=== PATIENT | male | born 1945 | race Caucasian/White ===

== ENCOUNTER 2024-08-21 09:39 | Day surgery (SDC) | payer MEDICARE, SELFPAY ==
[2024-08-17 08:46] VITALS: BMI 23.8
--- NOTE | 2024-08-17 13:38 | P.CONAN_ITS ---
Documented by User: Yuli Weiner NP 08/17/24 13:38 HPI - Anesthesia Eval Consult details Narrative: 79yo M for Left Cataract Extraction IOL Insertion No previous cataract on record [facility] Past Medical History Medical History Pulmonary nodules Pre-diabetes Emphysema lung Elevated cholesterol HTN (hypertension) Chronic renal insufficiency Surgical History Surgical History Hx of vasectomy History of lung biopsy H/O colonoscopy Social History Social History Patient Tobacco Use Status: Former Tobacco user Tobacco use type: Cigarette Use of substances other than those prescribed or required for medical reasons: No Christian Healthcare Practices: [employer] Advance Directives Information Provided: Yes (as above noted) Advance Directives on File: No Meds Allergies Allergy/AdvReac Type Severity Reaction Status Date / Time No Known Allergies Allergy Verified 08/21/24 11:21 Home Medications ?Medication ?Instructions ?Recorded ?Confirmed ?Last Taken ?Type amlodipine 10 mg tablet 10 mg PO DAILY 08/17/24 08/17/24 08/21/24 History lisinopril 5 mg tablet 5 mg PO DAILY 08/17/24 08/17/24 08/21/24 History pravastatin 20 mg tablet 20 mg PO DAILY 08/17/24 08/17/24 Unknown History Exam Height,Weight and Vital Signs: Height 5 ft 8.27 in Weight 71.6 kg Assessment and Plan Assessment Anesthesia Assessment: Chart Reviewed Documented by User: Yolanda Duran MD 08/21/24 12:33 [facility] Past Medical History Medical History Pulmonary nodules Pre-diabetes Emphysema lung Elevated cholesterol HTN (hypertension) Chronic renal insufficiency Family History Family history of problems with anesthesia: No Surgical History Surgical History Hx of vasectomy History of lung biopsy H/O colonoscopy History of Problems with Anesthesia: No Social History Social History Patient Tobacco Use Status: Former Tobacco user Tobacco use type: Cigarette Use of substances other than those prescribed or required for medical reasons: No Christian Healthcare Practices: [employer]ism Advance Directives Information Provided: Yes (as above noted) Advance Directives on File: No Meds Allergies Allergy/AdvReac Type Severity Reaction Status Date / Time No Known Allergies Allergy Verified 08/21/24 11:21 Home Medications ?Medication ?Instructions ?Recorded ?Confirmed ?Last Taken ?Type amlodipine 10 mg tablet 10 mg PO DAILY 08/17/24 08/17/24 08/21/24 History lisinopril 5 mg tablet 5 mg PO DAILY 08/17/24 08/17/24 08/21/24 History pravastatin 20 mg tablet 20 mg PO DAILY 08/17/24 08/17/24 Unknown History Exam Airway Mallampati Class: II TM Dist: >3cm Neck ROM: Full Heart: rrr Lungs: cta Assessment and Plan Assessment Anesthesia Assessment: Anesthesia Plan Discussed Final Anesthetic Review Family History of Problems with Anesthesia: No History of Problems with Anesthesia: No NPO: Yes ASA Class: III Final Preanesthetic Review: No Changes in Pt Med Stat, Meds/Allgs Chart Reviewed, Consent Obtained/Reviewed and Anes Risks/Benef Reviewed Patient Risk: Intermediate Procedure Risk: Low Anesthetic Plan Anesthetic Plan: MAC: Disposition: Standard PACU
[2024-08-21] MEDS: Tetracaine HCl/PF 0.5% Oph Sol 4 ML DROPS 1 DROP EYE-LEFT (11:00)
[2024-08-21] MEDS: Lactated Ringers 500 ML 50 ML IV (11:00)
[2024-08-21] MEDS: Cyclopentolate 1 % Ophth Sol 2 ML DRPBTL 1 DROP EYE-LEFT ×3 (11:00→11:08)
[2024-08-21] MEDS: Phenylephrine HCL 2.5% Oph SoL 2 ML BOTTLE 1 DROP EYE-LEFT ×3 (11:00→11:08)
[2024-08-21] MEDS: Tropicamide 1 % Ophth Sol 3 ML BTL 1 DROP EYE-LEFT ×3 (11:01→11:08)
[2024-08-21] MEDS: Ketorolac Tromethamine 0.5% Op 10 ML DROPS 1 DROP EYE-LEFT ×3 (11:01→11:08)
[2024-08-21 11:19] VITALS: BP 121/74; PULSE 77; RESP 18; TEMP 36.8; O2SAT 97
--- NOTE | 2024-08-21 11:53 | MHC.SHP ---
Pre-Procedural Eval Section A - 24 Hr Update-Section A only Date of Service: 08/21/24 The patient is an INPATIENT: No Changes since office visit: No Cold of Flu in the past 2 weeks, No New Medical Problems, No Changes in Medication and No Patient answered all questions The patient has been examined within 24 hours of the surgical procedure. The History & Physical has been completed within 30 days and I have reviewed it.: Yes Section B - Complete if H&P > 30 days Chief Complaint: Age-related nuclear cataract, left eye Allergies: Allergies Allergy/AdvReac Type Severity Reaction Status Date / Time No Known Allergies Allergy Verified 08/21/24 11:21 Plan Diagnosis/Plan: Unchanged I have reviewed the history and physical and performed a pertinent physical examination on my patient. No changes have occurred unless specified. Time Spent With Patient Time: Total time managing care of this patient today ____ minutes.
--- NOTE | 2024-08-21 11:54 | HO.PNOPHT ---
Ophthalmology Procedure Procedure Date of Service: 08/21/24 Ophthalmology Viscoelastic: Healon Duet Dual Pack Pro Ophthalmology Lenses: IOL Acrysof MP - MA60AC (23.5) Procedure Notes: PREOPERATIVE DIAGNOSIS: Decreased visual acuity left eye secondary to cataract POSTOPERATIVE DIAGNOSIS: Same PROCEDURE: Left cataract extraction with intraocular lens insertion, vision blue SURGEON: Dillon Manley M.D. ANESTHESIA: Topical/MAC ESTIMATED BLOOD LOSS: None COMPLICATIONS: None After obtaining informed consent, the patient was brought to the operation room suite and placed in the supine position. After adequate sedation per anesthesia, topical drops of Tetracaine were given to the left eye. The eye was then prepped and draped in the usual sterile fashion. The operating room microscope was then positioned over the operative eye and a lid speculum placed. A paracentesis was created. Viscoelastic was then instilled into the anterior chamber. A three plane incision was then created temporally, utilizing a 2.85 mm keratome. Air was instilled into the anterior chamber followed by vision blue dye.Capsulotomy forceps were then utilized to create a circular tear capsulotomy. Hydrodissection and hydrodelineation were carried out until adequate mobilization of the nucleus occurred. Phacoemulsification was then utilized to remove the dense central nucleus followed by removal of the cortical material utilizing the automated aspiration irrigation unit. Viscoat elastic was instilled into the posterior capsular bag followed by placement of a posterior chamber intraocular lens without difficulty. The residual Viscoat elastic was then removed utilizing the automated IA machine. The wound was check and found to be watertight. The patient tolerated the procedure well and the lid speculum was removed. Intracameral injection of Vigamox 0.1 mL followed by a subtenon injection of Kenalog-40 0.2 mL were administered. The patient will be seen in the a.m.
[2024-08-21 12:20] VITALS: BP 123/59; PULSE 75; TEMP 36.4; O2SAT 96
== END 2024-08-21 12:28 | disposition home or self-care (01) ==
PROVIDERS: PCP Internal Medicine; Visit Provider Ophthalmology
PROC: (CPT 66985; principal; 2024-08-21 12:30)
DX: H25.12 Age-related nuclear cataract, left eye (principal); H54.7 Unspecified visual loss; H11.153 Pinguecula, bilateral; H18.413 Arcus senilis, bilateral; H35.033 Hypertensive retinopathy, bilateral; H52.01 Hypermetropia, right eye; Q14.1 Congenital malformation of retina; I12.9 Hypertensive chronic kidney disease with stage 1 through stage 4 chronic kidney disease, or unspecified chronic kidney disease; N18.31 Chronic kidney disease, stage 3a; R73.03 Prediabetes; E78.00 Pure hypercholesterolemia, unspecified; R91.8 Other nonspecific abnormal finding of lung field; J43.9 Emphysema, unspecified; Z79.899 Other long term (current) drug therapy; Z87.891 Personal history of nicotine dependence
CPT/HCPCS: 66984; J2250; J3301; V2630

== ENCOUNTER 2024-09-04 07:36 | Day surgery (SDC) | payer MEDICARE, SELFPAY ==
[2024-08-17 08:51] VITALS: BMI 23.8
--- NOTE | 2024-08-31 13:02 | P.CONAN_ITS ---
Documented by User: Yuli Weiner NP 08/31/24 13:03 HPI - Anesthesia Eval Consult details Narrative: 79yo M for Right Cataract Extraction IOL Insertion Left eye 08/21/24: [facility] 1 [facility] Past Medical History Medical History Pulmonary nodules Pre-diabetes Emphysema lung Elevated cholesterol HTN (hypertension) Chronic renal insufficiency Family History Family history of problems with anesthesia: No Surgical History Surgical History Hx of left cataract extraction (08/21/24) Hx of vasectomy History of lung biopsy H/O colonoscopy History of Problems with Anesthesia: No Social History Social History Patient Tobacco Use Status: Former Tobacco user Tobacco use type: Cigarette Use of substances other than those prescribed or required for medical reasons: No [employer] Healthcare Practices: [employer]ism Advance Directives Information Provided: Yes (as above noted) Advance Directives on File: No Meds Allergies Allergy/AdvReac Type Severity Reaction Status Date / Time No Known Allergies Allergy Verified 09/04/24 07:51 Home Medications ?Medication ?Instructions ?Recorded ?Confirmed ?Last Taken ?Type amlodipine 10 mg tablet 10 mg PO DAILY 08/17/24 09/04/24 09/04/24 History lisinopril 5 mg tablet 5 mg PO DAILY 08/17/24 09/04/24 09/03/24 History pravastatin 20 mg tablet 20 mg PO DAILY 08/17/24 09/04/24 Unknown History Exam Height,Weight and Vital Signs: Height 5 ft 8.27 in Weight 71.6 kg Assessment and Plan Assessment Anesthesia Assessment: Chart Reviewed Final Anesthetic Review Family History of Problems with Anesthesia: No History of Problems with Anesthesia: No Documented by User: Yolanda Duran MD 09/04/24 08:12 [facility] Past Medical History Medical History Pulmonary nodules Pre-diabetes Emphysema lung Elevated cholesterol HTN (hypertension) Chronic renal insufficiency Surgical History Surgical History Hx of left cataract extraction (08/21/24) Hx of vasectomy History of lung biopsy H/O colonoscopy Social History Social History Patient Tobacco Use Status: Former Tobacco user Tobacco use type: Cigarette Use of substances other than those prescribed or required for medical reasons: No [employer] Healthcare Practices: [employer]ism Advance Directives Information Provided: Yes (as above noted) Advance Directives on File: No Meds Allergies Allergy/AdvReac Type Severity Reaction Status Date / Time No Known Allergies Allergy Verified 09/04/24 07:51 Home Medications ?Medication ?Instructions ?Recorded ?Confirmed ?Last Taken ?Type amlodipine 10 mg tablet 10 mg PO DAILY 08/17/24 09/04/24 09/04/24 History lisinopril 5 mg tablet 5 mg PO DAILY 08/17/24 09/04/24 09/03/24 History pravastatin 20 mg tablet 20 mg PO DAILY 08/17/24 09/04/24 Unknown History Exam Airway Mallampati Class: I TM Dist: >3cm Neck ROM: Limited Denture: Upper and Lower Heart: rrr Lungs: cta Assessment and Plan Assessment Anesthesia Assessment: Anesthesia Plan Discussed Final Anesthetic Review NPO: Yes ASA Class: III Final Preanesthetic Review: No Changes in Pt Med Stat, Meds/Allgs Chart Reviewed, Consent Obtained/Reviewed and Anes Risks/Benef Reviewed Patient Risk: Intermediate Procedure Risk: Low Anesthetic Plan Anesthetic Plan: MAC: Disposition: Standard PACU
[2024-09-04 07:53] VITALS: BP 128/66; PULSE 68; RESP 16; TEMP 36.6; O2SAT 97
[2024-09-04 07:57] VITALS: BMI 22.9
[2024-09-04] MEDS: Tetracaine HCl/PF 0.5% Oph Sol 4 ML DROPS 1 DROP EYE-RIGHT (08:03)
[2024-09-04] MEDS: Cyclopentolate 1 % Ophth Sol 2 ML DRPBTL 1 DROP EYE-RIGHT ×3 (08:04→08:20)
[2024-09-04] MEDS: Tropicamide 1 % Ophth Sol 3 ML BTL 1 DROP EYE-RIGHT ×3 (08:06→08:22)
[2024-09-04] MEDS: Lactated Ringers 500 ML 50 ML IV (08:08)
[2024-09-04] MEDS: Ketorolac Tromethamine 0.5% Op 5 ML DROPS 1 DROP EYE-RIGHT ×3 (08:08→08:24)
[2024-09-04] MEDS: Phenylephrine HCL 2.5% Oph SoL 2 ML BOTTLE 1 DROP EYE-RIGHT ×3 (08:10→08:26)
--- NOTE | 2024-09-04 08:44 | MHC.SHP ---
Pre-Procedural Eval Section A - 24 Hr Update-Section A only Date of Service: 09/04/24 The patient is an INPATIENT: No Changes since office visit: No Cold of Flu in the past 2 weeks, No New Medical Problems, No Changes in Medication and No Patient answered all questions The patient has been examined within 24 hours of the surgical procedure. The History & Physical has been completed within 30 days and I have reviewed it.: Yes Section B - Complete if H&P > 30 days Chief Complaint: Age-related nuclear cataract, right eye Allergies: Allergies Allergy/AdvReac Type Severity Reaction Status Date / Time No Known Allergies Allergy Verified 09/04/24 07:51 Plan Diagnosis/Plan: Unchanged I have reviewed the history and physical and performed a pertinent physical examination on my patient. No changes have occurred unless specified. Time Spent With Patient Time: Total time managing care of this patient today ____ minutes.
--- NOTE | 2024-09-04 08:45 | P.PCNO_ITS ---
Ophthalmology Procedure Procedure Date of Service: 09/04/24 Ophthalmology Viscoelastic: Healon Duet Dual Pack Pro Ophthalmology Lenses: IOL Acrysof MP - MA60AC (22) Procedure Notes: PREOPERATIVE DIAGNOSIS: Decreased visual acuity right eye secondary to cataract POSTOPERATIVE DIAGNOSIS: Same PROCEDURE: Right cataract extraction with intraocular lens insertion SURGEON: Dillon Manley M.D. ANESTHESIA: Topical/MAC ESTIMATED BLOOD LOSS: None COMPLICATIONS: None After obtaining informed consent, the patient was brought to the operating room suite and placed in the supine position. After adequate sedation per anesthesia, topical drops of Tetracaine were given to the right eye. The eye was then prepped and draped in the usual sterile fashion. The operating room microscope was then positioned over the operative eye and a lid speculum placed. A paracentesis was created. Viscoelastic was then instilled into the anterior chamber. A three plane incision was then created temporally, utilizing a 2.85 mm keratome. Capsulotomy forceps were then utilized to create a circular tear capsulotomy. Hydrodissection and hydrodelineation were carried out until adequate mobilization of the nucleus occurred. Phacoemulsification was then utilized to remove the dense central nucl eus followed by removal of the cortical material utilizing the automated aspiration irrigation unit. Viscoelastic was instilled into the posterior capsular bag followed by placement of a posterior chamber intraocular lens without difficulty. The residual Viscoelastic was then removed utilizing the automated IA machine. The wound was checked and found to be watertight. The patient tolerated the procedure well and the lid speculum was removed. Intracameral injection of Vigamox 0.1 mL followed by a subtenon injection of Kenalog-40 0.2 mL were administered. The patient will be seen in the a.m.
[2024-09-04 09:11] VITALS: BP 112/56; PULSE 69; RESP 16; TEMP 36.5; O2SAT 97
== END 2024-09-04 09:21 | disposition home or self-care (01) ==
PROVIDERS: PCP Internal Medicine; Visit Provider Ophthalmology
PROC: (CPT 66985; principal; 2024-09-04 09:00)
DX: H25.11 Age-related nuclear cataract, right eye (principal); H54.7 Unspecified visual loss; H52.01 Hypermetropia, right eye; H35.033 Hypertensive retinopathy, bilateral; H11.153 Pinguecula, bilateral; H18.413 Arcus senilis, bilateral; Q14.1 Congenital malformation of retina; I12.9 Hypertensive chronic kidney disease with stage 1 through stage 4 chronic kidney disease, or unspecified chronic kidney disease; N18.31 Chronic kidney disease, stage 3a; R73.03 Prediabetes; E78.5 Hyperlipidemia, unspecified; J43.9 Emphysema, unspecified; R91.8 Other nonspecific abnormal finding of lung field; Z79.899 Other long term (current) drug therapy; Z87.891 Personal history of nicotine dependence
CPT/HCPCS: 66984; J2250; J3301; V2630